=== PATIENT | female | born 1975 | race Caucasian/White ===

== ENCOUNTER 2021-08-23 16:12 | Outpatient (CLI) | payer MEDICAID | END 2021-08-23 23:59 | disposition home or self-care (01) | LOC: RAD 16:12 | PROVIDERS: ATTEND Family Medicine | DX: R05.9 Cough, unspecified (principal); R06.02 Shortness of breath; R53.83 Other fatigue; U07.1 COVID-19 | CPT/HCPCS: 71046 ==

== ENCOUNTER 2025-01-31 09:25 | Emergency (ER) | payer MEDICAID ==
[~2025-01-31] VITALS: Ht 160 cm; Wt 58.0 kg
--- NOTE | 2025-01-31 10:16 | RADIOLOGY REPORT ---
CLINICAL INDICATION: FOOT PAIN TECHNIQUE: Right DI FOOT, COMPLETE (3VW MIN) Comparison: None FINDINGS/IMPRESSION: : There is no evidence of acute fracture or dislocation. Soft tissues are unremarkable.
[2025-01-31] MEDS ORDERED: NAPR-56 PO (11:20)
[2025-01-31] MEDS ORDERED: HYDR-3973 PO (11:20)
--- NOTE | 2025-01-31 11:26 | Physician Documentation ---
History of Present Illness ~ Chief Complaint: Foot pain Stated Complaint: R FOOT PAIN Time Seen by MD: 10:40 OK to notify your PCP?: Yes Source: patient Mode of Arrival: POV Exam Limitations: no limitations HPI 49-year-old female reports rolling her right foot off the edge of a curb as she was walking her dog during the nighttime late night. Her foot initially swelled significantly and was purple in color. The swelling has red uced and the bruising has progressed in her foot is extremely painful to the touch. She has been taking ibuprofen for pain relief last dose yesterday. Medication Reconciliation Allergies: Coded Allergies: Sulfa (Sulfonamide Antibiotics) (Unverified Allergy, Unknown, hives, 01/31/25) Review of Systems All Other Systems at this time: Reviewed and Negative Physical Exam Vital Signs: RN Vital Signs have been reviewed: Yes, Temperature: 98.9, Source: Temporal, Heart Rate: 121, Respiratory Rate: 16, BP: 143/92, Pulse Oximetry: 97, Weight: 58.000 Oxygen Flow Rate: 0 Pulse Oximetry Reflects: adequate oxygenation Physical Exam General: Alert, no apparent distress. HEENT: PERRL, EOMI, no injection, moist mucous membranes. Neck: Full range of motion. Respiratory: Lungs clear, no respiratory distress. Chest: No accessory muscle use. Cardiovascular: Regular rate and rhythm, no murmurs. Gastrointestinal: Soft, nontender, nondistended. Bowels sounds present. Extremities: Normal dorsiflexion of right foot decreased flexion due to pain. Good CSM, good sensation. Bruising noted to lateral top of right foot with some edema. Good range motion in ankle. Neurologic: Oriented x4. Psychiatric: Normal mood and affect. Skin: Normal color, warm and dry. No edema, no ecchymosis. Progress Results/Orders Results/Orders Vital Signs 01/31/25 09:30 Temp 98.9 Pulse 121 Resp 16 B/P (MAP) 143/92 Pulse Ox 97 O2 Flow Rate 0 EKG/XRAY/CT/US/VASC/MRI Bone/Soft Tissue X-Ray (Ext.) : Additional Comment Right foot X-ray as interpreted by me; no acute fracture, no soft tissue swell ing, no dislocation, or foreign body. Medical Decision Making Additional info obtained from: old records Findings 49-year-old female presents for right foot pain after rolling it off curb night. She has been icing it at home keeping it elevated but it is still very painful to walk on in his still quite bruised and swollen. She has been taking ibuprofen last dose yesterday for pain relief but is concerned for fracture. Today's x-rays does shows no acute fracture but we did discuss the limitations of x-rays and small fractures can be missed on the initial x-ray but appreciated on subsequent x-rays 7-10 days later. We discussed that she should follow up with the primary care provider within the next week and I provided her with naproxen and Sorrento prescriptions as well as the 1st dose here in the department. She was given a postop shoe to help provide extra support as she was wearing slide sandals. She was educated to keep her foot elevated and alternate ice and heat for pain relief. General Diff Dx:Considerations: Include: Neurovascular injury, Open fracture Ankle Diff Dx:Considerations: Include: Fracture-fibula, Fracture-tarsal, Fracture-tibia Departure Disposition: 01 HOME / SELF CARE / HOMELESS Impression: Primary Impression: Sprain of foot Condition: Stable Discharge Instructions: Sprains Additional Instructions: Please use the naproxen and Tylenol for pain relief. If this is not working then you can use the prescribed Sor[place]o but it does have Tylenol in it. Please take care and should not exceed 4000 mg of Tylenol within a 24 hour period. Please use the postop shoe for extra support as her foot is healing. As discussed the x-ray did not show any fracture at this point but sometimes our initial straight can miss tiny fractures so if you are still having symptoms please get a repeat x-ray in 7-10 days. Follow up with her primary care provider within the next week and return back here for any new or worsening symptoms. Referrals: NO PRIMARY CARE PROVIDER (PCP) Prescriptions Hydrocodone Bit/Acetaminophen (Hydrocodone-Apap 10-325 Tablet) 10mg/325mg Tablet 1 TAB PO TID PRN PRN for pain for 5 Days, #15 TAB Prov: VIELKA EMERSON [employer] 01/31/25 Naproxen (Naproxen) 500 Mg Tablet 1 TAB PO Q12H, #20 TAB Prov: VIELKA EMERSON [employer] 01/31/25 Education Educated: Patient Educated regarding: diagnosis, treatment, prognosis, need for follow up Additional Comment Medical Screen Exam This patient recieved a medical screening examination. After reviewing the individual's medical complaints with presenting symptoms and performing an appropriate physical examination, it was determined that no immediate life- threatening emergency medical condition is present. This individual is also not a women having contractions. Signature Scribe Signature: . Attestation: Scribed for Vielka Emerson Dial Refinisher by Vielka Yao NP . 01/31/25 11:28 Parts of this note were created using [employer] voice recognition software program. While efforts were made to correct any mistakes made by this voice recognition software program, nonsensical phrases may remain in this note. In addition, there may be errors and syntax, grammar, content and spelling. [facility] Jan 31, 2025 11:26
[2025-01-31] MEDS: HYDROcodone/acetaminophen 10/325mg tab PO ONE (11:27)
[2025-01-31 11:41] VITALS: BP 128/69; PULSE 83; RESP 16; TEMP 98.9; O2SAT 99
== END 2025-01-31 11:44 | disposition home or self-care (01) ==
LOC: ER 09:26
DX: S93.601A Unspecified sprain of right foot, initial encounter (principal); X58.XXXA Exposure to other specified factors, initial encounter; Y93.K1 Activity, walking an animal; Y92.89 Other specified places as the place of occurrence of the external cause; Y99.8 Other external cause status
CPT/HCPCS: 73630; 99283; L3260

== ENCOUNTER 2025-03-24 09:17 | Outpatient (CLI) | payer MEDICAID ==
--- NOTE | 2025-03-24 11:37 | RADIOLOGY REPORT ---
PROCEDURE: MR MRI LUMBAR SPINE INDICATION: LUMBAGO WITH SCIATICA, LEFT SIDE Exam Date: 03/24/2025 09:28 AM COMPARISON: None TECHNIQUE: MRI lumbar spine without intravenous contrast. FINDINGS: Multilevel disc degeneration. Alignment: No spondylolisthesis identified. Vertebrae: Vertebral body height is well maintained without evidence of a recent compression fracture. Conus: Conus medullaris terminates at the L1 level. Following level detailed below: T12-L1: The disc configuration is normal. No spinal canal or neural foraminal stenosis. The facet joints are normal. L1-2: The disc configuration is normal. No spinal canal or neural foraminal stenosis. The facet joints are normal. L2-3: The disc configuration is normal. No spinal canal or neural foraminal stenosis. The facet joints are normal. L3-4: The disc configuration is normal. No spinal canal or neural foraminal stenosis. Facet arthrosis. L4-5: Disc desiccation and 5.55 mm disc bulge. Mild left lateral recess stenosis. Mild left foraminal stenosis. Facet arthrosis. L5-S1: Disc desiccation. Disc bulge with superimposed central disc protrusion measured 2.2 mm in radial dimension. No spinal canal or neural foraminal stenosis. Facet arthrosis. IMPRESSION: 1. Multilevel disc degeneration. 2. Mild left lateral recess stenosis at L4-L5 level. 3. Mild left foraminal stenosis at L4-L5 level.
== END 2025-03-24 23:59 | disposition home or self-care (01) ==
LOC: MRI02 09:17
PROVIDERS: ATTEND Nurse Practitioner
DX: M51.16 Intervertebral disc disorders with radiculopathy, lumbar region (principal); M48.061 Spinal stenosis, lumbar region without neurogenic claudication; M47.26 Other spondylosis with radiculopathy, lumbar region
CPT/HCPCS: 72148